=== PATIENT | female | born 1930 | race Caucasian/White ===

== ENCOUNTER 2017-08-15 19:39 | Inpatient (IN) | payer MEDICARE ==
[~2017-08-15] VITALS: Ht 154.9 cm; Wt 68.9 kg
--- NOTE | 2017-08-15 19:50 | NUR ---
DR BOOKER AT BEDSIDE FOR EVAL.
--- NOTE | 2017-08-15 20:10 | NUR ---
SENIOR WEB SERVICES DEVELOPER AT BEDSIDE FOR BLOOD DRAW.
[2017-08-15 20:16] LABS: BASOPHILS # (AUTO) 0.1 /CMM (0.0-0.2); BASOPHILS % (AUTO) 0.8 % (0.0-2.0); EOSINOPHILS # (AUTO) 0.1 /CMM (0.0-0.7); EOSINOPHILS % (AUTO) 0.6 % (0.0-6.0); HEMATOCRIT 43 % (33-45); HEMOGLOBIN 14.9 g/dL (11.5-14.8); LYMPHOCYTES # (AUTO) 0.6 /CMM (0.8-4.8); LYMPHOCYTES % (AUTO) 3.7 % (20.0-44.0); MEAN CORPUSCULAR HEMOGLOBIN 31 PG (26.0-33.0); MEAN CORPUSCULAR HGB CONC 34 g/dl (31.0-36.0); MEAN CORPUSCULAR VOLUME 91 fL (82-100); MONOCYTES # (AUTO) 0.8 /CMM (0.1-1.30); MONOCYTES % (AUTO) 4.9 % (2.0-12.0); NEUTROPHILS # (AUTO) 14.2 /CMM (1.8-8.9); PLATELET COUNT (AUTO) 310 /CMM (150-450); RDW COEFFICIENT OF VARIATION 12.7 (11.5-15.0); RED BLOOD CELL COUNT(AUTO) 4.74 MIL/uL (4.0-5.2); WHITE BLOOD COUNT (AUTO) 15.8 K/uL (4.3-11.0)
[2017-08-15 20:23] LABS: APPEARANCE,URINE Clear (CLEAR); BILIRUBIN,URINE Negative (NEGATIVE); BLOOD, URINE Negative Ery/uL (NEGATIVE); COLOR,URINE Yellow (YELLOW); KETONES,URINE Trace (NEGATIVE); LEUKOCYTE ESTERASE ,URINE Trace (NEGATIVE); NITRITE, URINE Negative (NEGATIVE); PROTEIN,URINE Negative (NEGATIVE); UGLUCOSE Negative (NEGATIVE); UROBILINOGEN,URINE 0.2 EU/dL (0.2)
[2017-08-15 20:27] LABS: ALCOHOL, BLOOD < 3 mg/dL (0-0); CALCIUM, SERUM 9.1 mg/dL (8.5-10.1); CARBON DIOXIDE 28 mmol/L (21-32); CHLORIDE 104 mmol/L (98-107); CREATININE 1.4 mg/dL (0.6-1.3); GLUCOSE 107 mg/dL (74-106); POTASSIUM 4.7 mmol/L (3.5-5.1); SODIUM SERUM 138 mmol/L (136-145); UREA NITROGEN, BLOOD 26 mg/dL (7-18)
[2017-08-15 20:34] LABS: BACTERIA,URINE Few /HPF (None Seen); RBC,URINE 0-2 /HPF (0-2); SQUAMOUS EPITHELIAL CELL,UR Moderate /HPF (None Seen)
--- NOTE | 2017-08-15 20:35 | NUR ---
PT TO RADIOLOGY FOR HEAD CT SCAN VIA [facility].
[2017-08-15] MEDS ORDERED: NITROFURANTOIN/NITROFURAN MAC 100 MG CAPSULE PO ONE (21:30)
[2017-08-15] MEDS ORDERED: NITROFURANTOIN/NITROFURAN MAC 100 MG CAPSULE ONE (21:54)
--- NOTE | 2017-08-15 22:36 | NUR ---
REPORT GIVEN TO NOLA. PT AWAITING TRANSFER TO FLOOR.
[2017-08-15] MEDS ORDERED: MEMA10TA21 PO (22:58)
[2017-08-15] MEDS ORDERED: METO25TA6 PO (22:58)
[2017-08-15] MEDS ORDERED: LORA2TAB PO (22:58)
[2017-08-15] MEDS ORDERED: RANI150C4 PO (22:58)
[2017-08-15] MEDS ORDERED: RIVA10TA PO (22:58)
[2017-08-15] MEDS ORDERED: LOVA20TA2 PO (22:58)
[2017-08-15] MEDS ORDERED: RISP1TAB27 PO (22:58)
[2017-08-15] MEDS ORDERED: QUET50TA PO (22:58)
[2017-08-15] MEDS ORDERED: DONE5TAB34 PO (22:58)
[2017-08-15] MEDS ORDERED: AMLO10TA2 PO (22:58)
[2017-08-15] MEDS ORDERED: MIRT15TA7 PO (22:58)
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
--- NOTE | 2017-08-16 01:01 | NUR ---
PATIENT'S FRIEND SHREYAS WAS WITH HER DURING ADMISSION, HER ONLY FRIEND AND FAMILY/DPOA. PATIENT;S FAMILY WERE ALL PER SHREYAS.
[2017-08-16] MEDS ORDERED: ACETAMINOPHEN 325 MG TABLET PO PRN (03:00)
[2017-08-16] MEDS ORDERED: MAGNESIUM HYDROXIDE 30 ML UDC PO PRN (03:00)
[2017-08-16] MEDS ORDERED: MAG HYDROX/AL HYDROX/SIMETH 30 ML UDC PO PRN (03:00)
--- NOTE | 2017-08-16 03:38 | NUR ---
FLU VACCINE NEED TO FOLLOW P WITH SHREYAS, THE DPOA FOR THE PATIENT. PATIENT UNABLE TO SAY DUE TO HER LEVEL OF MENTATION.
[2017-08-16 08:00] VITALS: BP 100/47
[2017-08-16] MEDS: METOPROLOL TARTRATE 25 MG TABLET PO SCH (09:00)
[2017-08-16] MEDS: AMLODIPINE BESYLATE 10 MG TABLET PO SCH (09:00)
[2017-08-16] MEDS: MEMANTINE HCL 5 MG TABLET PO SCH ×2 (09:30→17:09)
[2017-08-16] MEDS: DONEPEZIL 5 MG TABLET PO SCH (09:30)
--- NOTE | 2017-08-16 13:38 | NUR ---
GPS RN NOTE: PT WAS SEEN BY OSCAR FAROOQ N.P. NOTIFIED PT LABS, POS UTI , VS. N.PHill FAROOQ WILL PUT THE ORDERS. WILL CONTINUE MONITORING Addendum: 08/16/17 at 1755 by JANESSA PINA RN NHillPHill NOTIFIED AND LOOK AT THE POLST FOR DNR,OSCAR FAROOQ WILL PUT THE ORDER.
[2017-08-16] MEDS ORDERED: QUETIAPINE FUMARATE 25 MG TABLET PO PRN (15:30)
[2017-08-16 16:25] VITALS: BP 140/56
[2017-08-16] MEDS ORDERED: LEVOFLOXACIN (500MG) 500 MG TABLET PO SCH (17:00)
[2017-08-16] MEDS: RIVAROXABAN 10 MG TABLET PO SCH (17:08)
[2017-08-16] MEDS: CEPHALEXIN MONOHYDRATE 500 MG CAPSULE PO SCH (17:41)
[2017-08-16] MEDS: FAMOTIDINE (20 MG) 20 MG TABLET PO SCH (17:41)
[2017-08-16] MEDS ORDERED: LOVASTATIN (NON FORMULARY) 20 MG TABLET PO SCH (18:00)
[2017-08-16 18:41] LABS: CALCIUM, SERUM 8.9 mg/dL (8.5-10.1); CARBON DIOXIDE 27 mmol/L (21-32); CHLORIDE 104 mmol/L (98-107); CREATININE 1.2 mg/dL (0.6-1.3); GLUCOSE 116 mg/dL (74-106); POTASSIUM 3.7 mmol/L (3.5-5.1); SODIUM SERUM 139 mmol/L (136-145); UREA NITROGEN, BLOOD 25 mg/dL (7-18)
[2017-08-16 19:34] LABS: EOSINOPHILS % (AUTO) 0.4 % (0.0-6.0); HEMATOCRIT 42 % (33-45); HEMOGLOBIN 14.1 g/dL (11.5-14.8); LYMPHOCYTES # (AUTO) 0.8 /CMM (0.8-4.8); MEAN CORPUSCULAR HEMOGLOBIN 32 PG (26.0-33.0); MEAN CORPUSCULAR HGB CONC 34 g/dl (31.0-36.0); MEAN CORPUSCULAR VOLUME 94 fL (82-100); MONOCYTES # (AUTO) 0.6 /CMM (0.1-1.30); MONOCYTES % (AUTO) 6.8 % (2.0-12.0); NEUTROPHILS # (AUTO) 7.2 /CMM (1.8-8.9); NEUTROPHILS % (AUTO) 83.8 % (43.0-81.0); PLATELET COUNT (AUTO) 240 /CMM (150-450); RDW COEFFICIENT OF VARIATION 13.8 (11.5-15.0); RED BLOOD CELL COUNT(AUTO) 4.46 MIL/uL (4.0-5.2); WHITE BLOOD COUNT (AUTO) 8.6 K/uL (4.3-11.0)
[2017-08-16 19:49] VITALS: BP 124/65
[2017-08-16] MEDS ORDERED: CEPHALEXIN MONOHYDRATE 500 MG CAPSULE PO SCH (21:00)
[2017-08-16] MEDS: ATORVASTATIN 10 MG TABLET PO SCH (21:15)
[2017-08-16] MEDS: QUETIAPINE FUMARATE 25 MG TABLET PO SCH (21:16)
[2017-08-16] MEDS ORDERED: DONEPEZIL 5 MG TABLET PO SCH (22:00)
[2017-08-17] MEDS: MEMANTINE HCL 5 MG TABLET PO SCH ×2 (08:32→16:46)
[2017-08-17] MEDS: AMLODIPINE BESYLATE 10 MG TABLET PO SCH (08:32)
[2017-08-17] MEDS: DONEPEZIL 5 MG TABLET PO SCH ×2 (08:32→21:55)
[2017-08-17] MEDS: CEPHALEXIN MONOHYDRATE 500 MG CAPSULE PO SCH ×2 (08:32→21:57)
[2017-08-17] MEDS: METOPROLOL TARTRATE 25 MG TABLET PO SCH (08:32)
[2017-08-17 09:12] LABS: BASOPHILS % (AUTO) 0.5 % (0.0-2.0); EOSINOPHILS # (AUTO) 0.2 /CMM (0.0-0.7); EOSINOPHILS % (AUTO) 2.6 % (0.0-6.0); HEMATOCRIT 38 % (33-45); HEMOGLOBIN 13.1 g/dL (11.5-14.8); LYMPHOCYTES # (AUTO) 1.1 /CMM (0.8-4.8); LYMPHOCYTES % (AUTO) 18.9 % (20.0-44.0); MEAN CORPUSCULAR HEMOGLOBIN 32 PG (26.0-33.0); MEAN CORPUSCULAR HGB CONC 34 g/dl (31.0-36.0); MEAN CORPUSCULAR VOLUME 93 fL (82-100); MONOCYTES # (AUTO) 0.8 /CMM (0.1-1.30); MONOCYTES % (AUTO) 13.7 % (2.0-12.0); NEUTROPHILS # (AUTO) 3.8 /CMM (1.8-8.9); NEUTROPHILS % (AUTO) 64.3 % (43.0-81.0); PLATELET COUNT (AUTO) 210 /CMM (150-450); RDW COEFFICIENT OF VARIATION 13.5 (11.5-15.0); RED BLOOD CELL COUNT(AUTO) 4.09 MIL/uL (4.0-5.2)
[2017-08-17 09:38] LABS: ALANINE AMINOTRANSFERASE 16 U/L (12-78); ALBUMIN 3.4 g/dL (3.4-5.0); ALKALINE PHOSPHATASE 50 U/L (46-116); ASPARTATE AMINOTRANSFERASE 21 U/L (15-37); BILIRUBIN,TOTAL 0.4 mg/dL (0.2-1.0); CALCIUM, SERUM 8.6 mg/dL (8.5-10.1); CARBON DIOXIDE 27 mmol/L (21-32); CHLORIDE 107 mmol/L (98-107); CREATININE 1.1 mg/dL (0.6-1.3); GLUCOSE 90 mg/dL (74-106); POTASSIUM 3.8 mmol/L (3.5-5.1); SODIUM SERUM 140 mmol/L (136-145); TOTAL PROTEIN, SERUM 6.6 g/dL (6.4-8.2); UREA NITROGEN, BLOOD 22 mg/dL (7-18)
[2017-08-17 09:39] LABS: CHOLESTEROL 151 mg/dL (<200); HDL CHOLESTEROL 75 mg/dL (40-60); LDL 71 mg/dL (0-99); TRIGLYCERIDES 58 mg/dL (30-150)
[2017-08-17 09:42] VITALS: BP 153/65
[2017-08-17 16:00] VITALS: BP 144/67
[2017-08-17] MEDS: RIVAROXABAN 10 MG TABLET PO SCH (16:46)
[2017-08-17] MEDS: FAMOTIDINE (20 MG) 20 MG TABLET PO SCH (17:00)
--- NOTE | 2017-08-17 17:31 | NUR ---
GPS RN NOTE; 1:1 SITTER FOR FALL RISK PT ON XARELTO
--- NOTE | 2017-08-17 19:30 | NUR ---
GPS RN NOTE, RECEIVED PATIENT AWAKE AND IN BED, NO S/S OR COMPLAINTS OF PAIN AT THIS TIME. PATIENT DISPLAYING NO S/S OF APPARENT DISTRESS AT THIS TIME. PATIENT BREATHING IS UNLABORED WITH EQUAL RISE AND FALL OF THE CHEST. PATIENT IS ALERT AND ORIENTED X 1-2 ON ROOM AIR WITH A SPO2 93 %. PATIENT IS MED COMPLIANT, CONFUSED, CALM, COOPERATIVE, AND NEEDS REORIENTATION AT TIMES. PATIENT HAS A ONE TO ONE SITTER FOR FALL RISK. PATIENT DENIES SI AND HI AT THIS TIME. PATIENT ASSISTED WITH TURNING AND REPOSITIONING Q2HR AND PRN FOR COMFORT AND CIRCULATION. PATIENT HAS NO NEEDS AT THIS TIME. PATIENT EDUCATED ON THE USE OF THE CALL THROPE. PATIENT BED SIDE RAILS UP X 2 FOR SAFETY, BED IS LOCKED AND LOW, WILL CONTINUE TO MONITOR THIS PATIENT WITH THE HELP OF STAFF.
[2017-08-17 19:47] VITALS: BP 114/61
[2017-08-17] MEDS: ATORVASTATIN 10 MG TABLET PO SCH (21:55)
[2017-08-17] MEDS: QUETIAPINE FUMARATE 25 MG TABLET PO SCH (21:56)
[2017-08-18 08:00] VITALS: BP 121/69
[2017-08-18] MEDS ORDERED: DONEPEZIL 5 MG TABLET PO SCH (09:00)
[2017-08-18] MEDS: AMLODIPINE BESYLATE 10 MG TABLET PO SCH (09:41)
[2017-08-18] MEDS: MEMANTINE HCL 5 MG TABLET PO SCH ×2 (09:41→16:40)
[2017-08-18] MEDS: CEPHALEXIN MONOHYDRATE 500 MG CAPSULE PO SCH ×2 (09:41→20:57)
[2017-08-18] MEDS: METOPROLOL TARTRATE 25 MG TABLET PO SCH (09:42)
--- NOTE | 2017-08-18 11:14 | NUR ---
Initial Discharge Note: Patient lives at [facility] / [address] [place] [address] and wishes to return upon discharge. SW called patient's contact, Mary Collins, . Mary stated that she is also patient's DPOA. SW requested paperwork. Mary stated that she will bring it in when she visits patient. Mary stated that she would like patient to return to assisted living facility. SW called Tesha, facilities administrator at [facility],[phone]. Tesha stated that she would like patient to return but that she will need to assess patient first. SW to arrange assessment when appropriate. SW to follow up with MD and facilitate safe and proper discharge.
[2017-08-18] MEDS: LORAZEPAM 0.5 MG TABLET PO PRN (13:16)
--- NOTE | 2017-08-18 13:16 | NUR ---
rn notes patient very anxious, crying, delusional, paranoid, administered ativan 0.5 mg po,prn as prescribed, v/s taken bp-133/59, p- 59, continued monitoring.
[2017-08-18 16:30] VITALS: BP 122/66
[2017-08-18] MEDS: FAMOTIDINE (20 MG) 20 MG TABLET PO SCH (16:40)
[2017-08-18] MEDS: RIVAROXABAN 10 MG TABLET PO SCH (16:43)
[2017-08-18 20:33] VITALS: BP 142/70
[2017-08-18] MEDS: ATORVASTATIN 10 MG TABLET PO SCH (21:02)
[2017-08-18] MEDS: DONEPEZIL 5 MG TABLET PO SCH (21:02)
[2017-08-18] MEDS: QUETIAPINE FUMARATE 25 MG TABLET PO SCH (21:02)
[2017-08-18] MEDS: TEMAZEPAM 7.5 MG CAPSULE PO PRN (21:45)
[2017-08-19] MEDS: LORAZEPAM 0.5 MG TABLET PO PRN (02:13)
[2017-08-19 08:00] VITALS: BP 134/68
[2017-08-19] MEDS: MEMANTINE HCL 5 MG TABLET PO SCH ×2 (09:51→17:40)
[2017-08-19] MEDS: CEPHALEXIN MONOHYDRATE 500 MG CAPSULE PO SCH ×2 (09:51→21:50)
[2017-08-19] MEDS: METOPROLOL TARTRATE 25 MG TABLET PO SCH (09:55)
[2017-08-19] MEDS: AMLODIPINE BESYLATE 10 MG TABLET PO SCH (09:55)
--- NOTE | 2017-08-19 13:08 | NUR ---
Discharge Planning: VARGHESE called Tesha, nursing home assistant administrator at assisted living, [facility] / [address] [place] [address] / [phone] and scheduled the assessment for noon on 08/20/17. VARGHESE informed pt's friend/ DPOA, Mary Collins, of the assessment.
[2017-08-19 16:00] VITALS: BP 113/62
[2017-08-19] MEDS: RIVAROXABAN 10 MG TABLET PO SCH (17:39)
[2017-08-19] MEDS: FAMOTIDINE (20 MG) 20 MG TABLET PO SCH (17:40)
[2017-08-19 20:23] VITALS: BP 134/57
[2017-08-19] MEDS: DONEPEZIL 5 MG TABLET PO SCH (21:50)
[2017-08-19] MEDS: ATORVASTATIN 10 MG TABLET PO SCH (21:50)
[2017-08-19] MEDS: TEMAZEPAM 7.5 MG CAPSULE PO PRN (21:50)
[2017-08-19] MEDS: QUETIAPINE FUMARATE 25 MG TABLET PO SCH (21:51)
[2017-08-20 08:00] VITALS: BP 130/75
[2017-08-20] MEDS: AMLODIPINE BESYLATE 10 MG TABLET PO SCH (08:43)
[2017-08-20] MEDS: MEMANTINE HCL 5 MG TABLET PO SCH ×2 (08:44→16:35)
[2017-08-20] MEDS: CEPHALEXIN MONOHYDRATE 500 MG CAPSULE PO SCH ×2 (08:44→21:48)
[2017-08-20] MEDS: METOPROLOL TARTRATE 25 MG TABLET PO SCH (08:44)
--- NOTE | 2017-08-20 09:37 | NUR ---
Discharge Planning: VARGHESE met with Tesha Khan Family Resource Coordinator and her from [facility] to facilitate pts assessment for discharge planning purposes. Per Tesha/ they believed pt "to be declining" according to their assessment however agreed to return to reassess when pt improved. They discussed concerns regarding pts appropriateness at their facility. VARGHESE asked Tesha to contact VARGHESE Costello to schedule an appointment for a reassessment.
[2017-08-20 16:08] VITALS: BP 129/57
[2017-08-20] MEDS: FAMOTIDINE (20 MG) 20 MG TABLET PO SCH (16:34)
[2017-08-20] MEDS: QUETIAPINE FUMARATE 25 MG TABLET PO SCH ×2 (16:35→21:49)
[2017-08-20] MEDS: RIVAROXABAN 10 MG TABLET PO SCH (16:37)
[2017-08-20 20:00] VITALS: BP 106/47
[2017-08-20] MEDS: ATORVASTATIN 10 MG TABLET PO SCH (21:49)
[2017-08-20] MEDS: DONEPEZIL 5 MG TABLET PO SCH (21:49)
--- NOTE | 2017-08-20 22:39 | NUR ---
Patient is pleasant and calm, alert but confuse, required redirections with no incident noted. Unable to assess patient thought process due to her confusion. Accepted and tolerates hs medications with no apparent distress noted, will continue to monitor for safety and provide support.
--- NOTE | 2017-08-21 02:48 | NUR ---
At the present time, patient is restless, observed attempted to get out of bed with assistance, easily redirected with no incident noted. Patient remains alert but confuse, will continue to monitor for safety and provide support.
[2017-08-21 08:00] VITALS: BP 122/62
[2017-08-21] MEDS: QUETIAPINE FUMARATE 25 MG TABLET PO SCH ×3 (09:19→22:49)
[2017-08-21] MEDS: MEMANTINE HCL 5 MG TABLET PO SCH ×2 (09:19→17:32)
[2017-08-21] MEDS: CEPHALEXIN MONOHYDRATE 500 MG CAPSULE PO SCH ×2 (09:19→22:50)
[2017-08-21] MEDS: METOPROLOL TARTRATE 25 MG TABLET PO SCH (09:19)
[2017-08-21] MEDS: AMLODIPINE BESYLATE 10 MG TABLET PO SCH (09:21)
--- NOTE | 2017-08-21 09:57 | NUR ---
Discharge Planning: SW consulted with patient's psychiatrist, Dr. Elias, and patient's DPARTUR Hernandez Collins [phone] regarding patient's discharge. It was determined that patient may need a higher level of care than her current board and care is able to provide her. VARGHESE spoke with GABE Hernandez and recommended SNF. Mary stated that she was fine with that, but would like to be involved in the process. VARGHESE stated that she will update GABE Hernandez as soon as VARGHESE hears any news of placement. VARGHESE stated that Mary would also be able to tour the facilities and speak with admissions coordinators to answer any questions.
[2017-08-21 13:00] VITALS: BP 117/68
--- NOTE | 2017-08-21 16:20 | NUR ---
Discharge Planning: Earlier in the day, VARGHESE faxed a referral to [facility] [address] [place] [address] and fax . VARGHESE was informed by Lisa, production control coordinator at [facility], that facility was able to accept patient and that they had scheduled a tour of facility with patient's DPOA Mary Collins [phone] at 4pm. VARGHESE to follow up after 4 with DPOA to confirm if patient is able to discharge to [facility] on Thursday.
--- NOTE | 2017-08-21 16:46 | NUR ---
Discharge Planning: VARGHESE called and left a voicemail for patient's DPOA/friend Mary Keitaon [phone] as a follow up to [facility]. SW to follow up on Thursday.
[2017-08-21] MEDS: FAMOTIDINE (20 MG) 20 MG TABLET PO SCH (17:32)
[2017-08-21] MEDS: RIVAROXABAN 10 MG TABLET PO SCH (17:35)
--- NOTE | 2017-08-21 18:04 | NUR ---
PATIENT REMAINS PLEASANTLY CONFUSED YET ABLE TO MAKE NEEDS KNOWN, NEEDS A LITTLE COAXING TO TAKE MEDS1;1 IN ROOM FOR SAFETY NO OUTBURSTS TODAY THIS SHIFTCONTINUE TO MONITOR SAFETY
[2017-08-21 21:46] VITALS: BP 135/55
[2017-08-21] MEDS: ATORVASTATIN 10 MG TABLET PO SCH (22:50)
[2017-08-21] MEDS: DONEPEZIL 5 MG TABLET PO SCH (22:50)
[2017-08-22] MEDS: LORAZEPAM 0.5 MG TABLET PO PRN ×2 (02:18→02:20)
[2017-08-22] MEDS: TEMAZEPAM 7.5 MG CAPSULE PO PRN ×2 (02:19→22:25)
[2017-08-22 08:00] VITALS: BP 162/64
[2017-08-22] MEDS: MEMANTINE HCL 5 MG TABLET PO SCH ×2 (09:44→16:19)
[2017-08-22] MEDS: CEPHALEXIN MONOHYDRATE 500 MG CAPSULE PO SCH ×2 (09:44→22:00)
[2017-08-22] MEDS: QUETIAPINE FUMARATE 25 MG TABLET PO SCH ×3 (09:45→22:23)
[2017-08-22] MEDS: METOPROLOL TARTRATE 25 MG TABLET PO SCH (09:45)
[2017-08-22] MEDS: AMLODIPINE BESYLATE 10 MG TABLET PO SCH (09:45)
[2017-08-22 16:00] VITALS: BP 138/69
[2017-08-22] MEDS: RIVAROXABAN 10 MG TABLET PO SCH (16:18)
[2017-08-22] MEDS: FAMOTIDINE (20 MG) 20 MG TABLET PO SCH ×2 (16:18→17:33)
[2017-08-22 20:00] VITALS: BP 131/54
[2017-08-22] MEDS: ATORVASTATIN 10 MG TABLET PO SCH (22:23)
[2017-08-22] MEDS: DONEPEZIL 5 MG TABLET PO SCH (22:23)
[2017-08-23] MEDS: LORAZEPAM 0.5 MG TABLET PO PRN (00:48)
[2017-08-23 08:00] VITALS: BP 134/72
[2017-08-23] MEDS: METOPROLOL TARTRATE 25 MG TABLET PO SCH (08:45)
[2017-08-23] MEDS: MEMANTINE HCL 5 MG TABLET PO SCH ×2 (08:45→17:28)
[2017-08-23] MEDS: AMLODIPINE BESYLATE 10 MG TABLET PO SCH (08:46)
[2017-08-23] MEDS: CEPHALEXIN MONOHYDRATE 500 MG CAPSULE PO SCH ×2 (08:47→21:19)
[2017-08-23] MEDS: QUETIAPINE FUMARATE 25 MG TABLET PO SCH ×3 (08:48→21:20)
[2017-08-23 16:00] VITALS: BP 102/64
[2017-08-23] MEDS: RIVAROXABAN 10 MG TABLET PO SCH (17:27)
[2017-08-23] MEDS: FAMOTIDINE (20 MG) 20 MG TABLET PO SCH (17:29)
[2017-08-23 20:06] VITALS: BP 125/50
[2017-08-23] MEDS: DONEPEZIL 5 MG TABLET PO SCH (21:19)
[2017-08-23] MEDS: ATORVASTATIN 10 MG TABLET PO SCH (21:19)
[2017-08-23 23:00] VITALS: BP 122/68
[2017-08-24 08:00] VITALS: BP 127/54
[2017-08-24] MEDS: MEMANTINE HCL 5 MG TABLET PO SCH ×2 (08:29→17:22)
[2017-08-24] MEDS: CEPHALEXIN MONOHYDRATE 500 MG CAPSULE PO SCH ×2 (08:29→20:47)
[2017-08-24] MEDS: METOPROLOL TARTRATE 25 MG TABLET PO SCH (08:32)
[2017-08-24] MEDS: AMLODIPINE BESYLATE 10 MG TABLET PO SCH (08:32)
[2017-08-24] MEDS: QUETIAPINE FUMARATE 25 MG TABLET PO SCH ×3 (09:20→21:14)
[2017-08-24] MEDS: SERTRALINE HCL 25 MG TABLET PO SCH (12:35)
--- NOTE | 2017-08-24 12:59 | NUR ---
WOUND CARE CONSULT: PT PRESENTS WITH PATCHY RED AREAS TO RT LOWER LEG. DEFER TO MD. PT IS AMBULATORY AND CONTINENT. DISCUSSED SKIN PROTECTION WITH NURSING STAFF. WILL SEE PRN. IN AGREEMENT WITH PLAN OF CARE.
[2017-08-24] MEDS: LORAZEPAM 0.5 MG TABLET PO PRN (14:12)
--- NOTE | 2017-08-24 14:12 | NUR ---
GPS/RN PATIENT IS ANXIOUS, RESTLESS, AGITATED, ADMINISTERED ATIVAN 0.5 MG, WILL CONTINUE TO MONITOR.
--- NOTE | 2017-08-24 14:24 | NUR ---
PATIENT SPIT OUT MEDICATION AT RN, WILL WASTE MEDICATION.
[2017-08-24 16:19] VITALS: BP 146/60
[2017-08-24] MEDS: RIVAROXABAN 10 MG TABLET PO SCH (17:25)
[2017-08-24] MEDS: FAMOTIDINE (20 MG) 20 MG TABLET PO SCH (17:50)
[2017-08-24 20:06] VITALS: BP 135/49
[2017-08-24] MEDS: ATORVASTATIN 10 MG TABLET PO SCH (21:14)
[2017-08-24] MEDS: DONEPEZIL 5 MG TABLET PO SCH (21:14)
[2017-08-25 08:00] VITALS: BP 114/70
[2017-08-25] MEDS: CEPHALEXIN MONOHYDRATE 500 MG CAPSULE PO SCH ×2 (08:37→21:27)
[2017-08-25] MEDS: AMLODIPINE BESYLATE 10 MG TABLET PO SCH (08:37)
[2017-08-25] MEDS: MEMANTINE HCL 5 MG TABLET PO SCH ×2 (08:38→16:42)
[2017-08-25] MEDS: METOPROLOL TARTRATE 25 MG TABLET PO SCH (08:38)
[2017-08-25] MEDS: QUETIAPINE FUMARATE 25 MG TABLET PO SCH ×3 (08:39→21:26)
[2017-08-25] MEDS: Z GUARD REMEDY 2 OZ OINT TP SCH ×2 (08:40→21:27)
--- NOTE | 2017-08-25 13:14 | NUR ---
Discharge Planning: Patient's DPOA/friend Mary Collins [phone] and director of [facility], Johnson Vale [phone] came to speak with SW and to assess patient. Mary again expressed her uncertainty of having patient return to [facility] or to [facility]. SW answered as many questions as possible for Janelle and for Johnson. VARGHESE stated that, while she understands that it is an important decision, the patient is ready for discharge and that a decision has to be made very soon - preferably by the end of the day. Mary stated that she will discuss this with Johnson in private and then call SW back today with a decision.
[2017-08-25] MEDS: SERTRALINE HCL 25 MG TABLET PO SCH (13:24)
--- NOTE | 2017-08-25 14:06 | NUR ---
Discharge Planning: SW spoke with Patient's DPOA/friend Mary Collins [phone], who stated that she would like patient at [facility] prior to returning to [facility] and care. SW to make arrangements.
[2017-08-25 16:00] VITALS: BP 140/76
[2017-08-25] MEDS: RIVAROXABAN 10 MG TABLET PO SCH (16:41)
[2017-08-25] MEDS: FAMOTIDINE (20 MG) 20 MG TABLET PO SCH (17:04)
[2017-08-25 20:18] VITALS: BP 154/68
[2017-08-25] MEDS: ATORVASTATIN 10 MG TABLET PO SCH (21:26)
[2017-08-25] MEDS: DONEPEZIL 5 MG TABLET PO SCH (21:27)
[2017-08-26 08:00] VITALS: BP 141/58
--- NOTE | 2017-08-26 08:50 | NUR ---
RN-CO: DR AZEVEDO GAVE AN ORDER TO DISCONTINUE HOLD AND DISCHARGE THE PATIENT TO [facility], NOTED
[2017-08-26 08:56] VITALS: BP 141/58
[2017-08-26] MEDS: METOPROLOL TARTRATE 25 MG TABLET PO SCH (08:56)
[2017-08-26] MEDS: QUETIAPINE FUMARATE 25 MG TABLET PO SCH (08:56)
[2017-08-26] MEDS: MEMANTINE HCL 5 MG TABLET PO SCH (08:56)
[2017-08-26] MEDS: CEPHALEXIN MONOHYDRATE 500 MG CAPSULE PO SCH (08:56)
[2017-08-26] MEDS: AMLODIPINE BESYLATE 10 MG TABLET PO SCH (08:56)
[2017-08-26] MEDS: Z GUARD REMEDY 2 OZ OINT TP SCH (09:30)
--- NOTE | 2017-08-26 09:54 | NUR ---
Discharge Note: Patient will be discharged to [facility] [address] [facility] [address] and fax via ambulance transportation arranged by medical social worker via [employer], trip # [id number]. Patients DPOA/friend Mary Collins [phone] is aware and in agreement. At the facility, patient will be followed by size worker, Dr. Martini [address], [place] [address] [phone]. Patient will also be under the care of psychiatrist, Dr. Elias [address] [address] [phone] at the facility.
--- NOTE | 2017-08-26 12:27 | NUR ---
DISCHARGE NOTE: PATIENT LEFT THE UNIT AT 1227. PATIENT MEDICALLY STABLE. V/S STABLE UPON DISCHARGE. DISCHARGE ORDER WAS RECEIVED FROM ROBERTO CARLOS AND LENS MOUNTER WAS AWARE. MED RECON WAS DONE BY BOTH PSYCHIATRIST AND LENS MOUNTER MC. BELONGINGS WERE WITH PATIENT UPON DISCHARGE. SKIN ASSESSMENT WAS DONE UPON DISCHARGE AND PICTURES ARE IN THE CHART. REPORT WAS GIVEN TO FE AT [facility]. NO SI/HI AT THE MOMENT OF DISCHARGE AND NO ACUTE DISTRESS.
--- NOTE | 2017-08-26 12:49 | NUR ---
RN NOTE: DURING DISCHARGE, WE COULD NOT FIND THE COUNTRY PRINTER APPRENTICE. ACCORDING TO OUR BOARD WE THOUGHT IT WAS DOCTOR MARIA FERNANDA. WHEN WE TEXTED AND CALLED WE RECEIVED NO WORD BACK. WE CALLED THE NURSE SITE DAMAGE PREVENTION TECHNICIAN AND [facility]MA AND THEY SAID IT WAS MC. WHEN MC WAS HERE HE SAID IT WAS NOT HIS PATIENT, BUT HE DISCHARGED AND PUT THE MED RECON IN ANYWAY.
[2017-08-26] MEDS: SERTRALINE HCL 25 MG TABLET PO SCH (12:51)
== END 2017-08-26 12:25 | DRG 885 ==
LOC: ER 19:42 → GPS 22:30
PROVIDERS: ADMIT Psychiatry & Neurology Psychosomatic Medicine; ATTEND Psychiatry & Neurology Psychosomatic Medicine
DX: F31.9 Bipolar disorder, unspecified (principal); F02.81 Dementia in other diseases classified elsewhere, unspecified severity, with behavioral disturbance; N17.0 Acute kidney failure with tubular necrosis; I48.0 Paroxysmal atrial fibrillation; E86.0 Dehydration; I48.91 Unspecified atrial fibrillation; E78.5 Hyperlipidemia, unspecified; F29 Unspecified psychosis not due to a substance or known physiological condition; D72.829 Elevated white blood cell count, unspecified; N39.0 Urinary tract infection, site not specified; G30.9 Alzheimer's disease, unspecified; F41.9 Anxiety disorder, unspecified; I10 Essential (primary) hypertension; Z79.01 Long term (current) use of anticoagulants; Z86.73 Personal history of transient ischemic attack (TIA), and cerebral infarction without residual deficits; I73.9 Peripheral vascular disease, unspecified; Z73.6 Limitation of activities due to disability; Z66 Do not resuscitate
CPT/HCPCS: 36415; 70450-TC; 80048-TC; 80053-TC; 80061-TC; 80305; 81000-TC; 83605-TC; 85025-TC; 87081-TC; 87086-TC; A4606; G0480; Z7610